=== PATIENT | female | born 1990 | race African-American/Black ===

== ENCOUNTER 2025-01-17 08:24 | Emergency (ER) | payer OTHER ==
[~2025-01-17] VITALS: Ht 190.5 cm; Wt 126.3 kg
[2025-01-17 08:50] VITALS: TEMP 97.7
[2025-01-17 11:15] VITALS: PULSE 62; RESP 18
[2025-01-17 12:49] VITALS: BP 141/95; PULSE 70; RESP 20; TEMP 97.5; O2SAT 100
== END 2025-01-17 12:45 | disposition home or self-care (01) ==
LOC: FSED 08:43
DX: R00.2 Palpitations (principal); S40.011A Contusion of right shoulder, initial encounter; W18.39XA Other fall on same level, initial encounter; Y93.01 Activity, walking, marching and hiking; Y92.89 Other specified places as the place of occurrence of the external cause; R94.31 Abnormal electrocardiogram [ECG] [EKG]
CPT/HCPCS: 71045; 80053; 80307; 81003; 81025; 84484; 85025; 85379; 93005; 99284